=== PATIENT | female | born 1965 | race Caucasian/White ===

== ENCOUNTER 2017-04-08 17:50 | Emergency (ER) | payer SELFPAY ==
[2017-04-08 17:51] VITALS: BMI 33.9
[2017-04-08] MEDS ORDERED: Sodium Chloride 0.9% 1,000 ML IV ONE ×3 (18:18→20:36)
[2017-04-08] MEDS ORDERED: Sodium Chloride 0.9% 1,000 ML ONE ×2 (18:21→19:22)
[2017-04-08 18:29] LABS: BASO # 0.1 K/uL (0.0-0.2); BASO % 0.5 % (0.0-2.0); EOS % 0.1 % (0.0-4.0); HEMATOCRIT 48.7 % (34.0-47.0); LYMPH # 1.3 K/uL (1.0-4.3); LYMPH % 9.7 % (20.0-40.0); MEAN CELL VOLUME 87.7 fL (81.0-99.0); MEAN CORPUSCULAR HEMOGLOBIN 30.5 pg (27.0-31.0); MEAN CORPUSCULAR HGB CONC 34.8 g/dL (33.0-37.0); MEAN PLATELET VOLUME 10.1 fL (7.2-11.7); MONO # 0.3 K/uL (0.0-0.8); MONO % 2.5 % (0.0-10.0); RED CELL DISTRIBUTION WIDTH 12.1 % (11.5-14.5)
[2017-04-08 18:40] LABS: CHLORIDE 97 mmol/L (98-107); PLATELET COUNT 322 K/uL (130-400); WHITE BLOOD COUNT 13.4 K/uL (4.8-10.8)
[2017-04-08 18:41] LABS: POTASSIUM 3.8 mmol/L (3.6-5.2); SODIUM 134 mmol/L (132-148)
[2017-04-08 18:43] LABS: ALB/GLOB RATIO 1.8 (1.0-2.1); ALKALINE PHOSPHATASE 137 U/L (38-126); AST/SGOT 36 U/L (14-36); BILIRUBIN,TOTAL 0.8 mg/dL (0.2-1.3); CARBON DIOXIDE 15 mmol/L (22-30); GFR AFRICAN-AMERICAN > 60; TOTAL PROTEIN 8.6 g/dL (6.3-8.3)
[2017-04-08 18:44] LABS: ALCOHOL SERUM < 10 mg/dl (0-10); ALT/SGPT 35 U/L (9-52); BLOOD UREA NITROGEN 16 mg/dL (7-17); CALCIUM 10.4 mg/dl (8.6-10.4)
[2017-04-08 18:45] LABS: GLUCOSE,RANDOM 457 mg/dL (65-105)
[2017-04-08 19:10] LABS: NEUTROPHIL 77 % (50-75); REACTIVE LYMPHOCYTES 1 % (0-0); TOTAL CELLS COUNTED 100
[2017-04-08] MEDS ORDERED: (Novolin R) Insulin Human Regular 100 units/ml vial IV STA (19:15)
[2017-04-08] MEDS ORDERED: (Novolin R) Insulin Human Regular 100 units/ml vial ONE ×2 (19:22→19:28)
[2017-04-08] MEDS ORDERED: Sodium Chloride 0.9% 100 ML ONE (19:28)
[2017-04-08] MEDS ORDERED: Insulin Human Regular 100 UNIT in Sodium Chloride 0.9% 99 ML IV SCH (19:30)
[2017-04-08 19:46] LABS: ABG ALLEN TEST A; DRAW SITE RRA
--- NOTE | 2017-04-08 19:48 | C.PDOC ---
Time Seen by Provider: 04/08/17 19:05 Chief Complaint (Nursing): Anxiety History Per: Patient History/Exam Limitations: no limitations Onset/Duration Of Symptoms: Other (1 week) Current Symptoms Are (Timing): Still Present Suicide/Self Injury Attempted (Context): None Severity: Mild Pain Scale Rating Of: 3 Recent travel outside of the [place]: No Past Medical History Reviewed: Historical Data, Nursing Documentation, Vital Signs Vital Signs: Last Vital Signs Temp 98 F 04/08/17 19:54 Pulse 119 H 04/08/17 19:54 Resp 17 04/08/17 19:54 BP 137/76 04/08/17 19:54 Pulse Ox 99 04/08/17 21:22 - Medical History PMH: HTN Family History: States: Unknown Family Hx - Social History Hx Alcohol Use: No Hx Substance Use: No - Immunization History Hx Tetanus Toxoid Vaccination: No Hx Influenza Vaccination: No Hx Pneumococcal Vaccination: No Review Of Systems Except As Marked, All Systems Reviewed And Found Negative. ED Course And Treatment - Laboratory Results Result Diagrams: 04/08/17 18:23 04/08/17 18:23 O2 Sat by Pulse Oximetry: 99 (room air) Pulse Ox Interpretation: Normal Progress Note: Plan: ABG, EKG, Labs, IV fluids, Novolin, IV fluids - Scribe Statement The provider has reviewed the documentation as recorded by the Scribe Meghna Birmingham Provider Attestation: All medical record entries made by the Scribe were at my direction and personally dictated by me. I have reviewed the chart and agree that the record accurately reflects my personal performance of the history, physical exam, medical decision making, and the department course for this patient. I have also personally directed, reviewed, and agree with the discharge instructions and disposition.
--- NOTE | 2017-04-08 21:26 | C.PDOC ---
History Of Present Illness <Ezra Norris E - Last Filed: 04/09/17 00:38> <Angel Huerta - Last Filed: 04/09/17 03:13> 51 year old patient, with a past medical history of hypertension, presents to the emergency department complaining of abdominal pain, nausea, vomiting, polyuria, and polydipsia for the past week. Patient was diagnosed with diabetes a few years ago, but states doesn't take her medications because she doesn't want to. Patient denies chest pain, shortness of breath, headache or dizziness. (Ezra Norris) History Per: Patient History/Exam Limitations: no limitations Onset/Duration Of Symptoms: Other (1 week) Context: Other Severity: Mild Pain Scale Rating Of: 3 Location Of Pain/Discomfort: Diffuse Radiation Of Pain To:: None Quality Of Discomfort: "Pain" Associated Symptoms: Nausea, Vomiting, Urinary Symptoms Exacerbating Factors: None Alleviating Factors: None Last Bowel Movement: Today Recent travel outside of the [place]: No <Ezra Norris - Last Filed: 04/09/17 00:38> <Angel Huerta - Last Filed: 04/09/17 03:13> Time Seen by Provider: 04/08/17 19:05 Chief Complaint (Nursing): Anxiety Past Medical History Reviewed: Historical Data, Nursing Documentation, Vital Signs - Medical History PMH: HTN Family History: States: Unknown Family Hx - Social History Hx Alcohol Use: No Hx Substance Use: No - Immunization History Hx Tetanus Toxoid Vaccination: No Hx Influenza Vaccination: No Hx Pneumococcal Vaccination: No <Ezra Norris - Last Filed: 04/09/17 00:38> Review Of Systems Except As Marked, All Systems Reviewed And Found Negative. Cardiovascular: Negative for: Chest Pain Respiratory: Negative for: Shortness of Breath Gastrointestinal: Positive for: Nausea, Vomiting, Abdominal Pain Genitourinary: Positive for: Other (polyuria, polydipsia) Neurological: Negative for: Headache, Dizziness <Ezra Norris - Last Filed: 04/09/17 00:38> Physical Exam - Physical Exam Appears: Non-toxic, No Acute Distress Skin: Warm, Dry Head: Atraumatic, Normacephalic Eye(s): bilateral: Normal Inspection Oral Mucosa: Dry Neck: Normal ROM, Supple Chest: Symmetrical Cardiovascular: Rhythm Regular (tachycardic) Respiratory: Normal Breath Sounds, No Rales, No Rhonchi, No Wheezing Gastrointestinal/Abdominal: Soft, No Tenderness, No Guarding, No Rebound Back: Normal Inspection, No CVA Tenderness Extremity: Normal ROM Neurological/Psych: Oriented x3, Normal Speech, Normal Cognition Gait: Steady <Ezra Norris - Last Filed: 04/09/17 00:38> ED Course And Treatment - Laboratory Results Result Diagrams: 04/08/17 18:23 04/08/17 18:23 ECG: Interpreted By Me ECG Rhythm: Sinus Tachycardia ECG Interpretation: Abnormal Rate From EC O2 Sat by Pulse Oximetry: 99 (room air) Pulse Ox Interpretation: Normal - Radiology CXR: Interpreted by Me CXR Interpretation: Yes: No Acute Disease Progress Note: Plan: ABG, EKG, Labs, IV fluids, Novolin. even after agressive hydration and BS control, pt persistently tachycardic with palps. Ativan IV and Reglan for nausea given. 0000: D-dimer ordered and elevated, CTA ordered and pending. <Ezra Norris - Last Filed: 04/09/17 00:38> - Laboratory Results Result Diagrams: 04/08/17 18:23 04/08/17 18:23 <Angel Huerta - Last Filed: 04/09/17 03:13> Medical Decision Making <Ezra Norris - Last Filed: 04/09/17 00:38> <Angel Huerta - Last Filed: 04/09/17 03:13> Medical Decision Making: uncontrolled DM with persistent palpitations and n/v elev d-dimer, ? PE (Ezra Norris) Disposition - Disposition Disposition Time: 01:00 <Ezra Norris - Last Filed: 04/09/17 00:38> - Disposition Disposition Time: 03:10 - POA Present On Arrival: None <Angel Huerta - Last Filed: 04/09/17 03:13> - Disposition Referrals: [facility] [Outside] Disposition: HOME/ ROUTINE Condition: FAIR Prescriptions: Azithromycin [Zithromax] 500 mg PO DAILY #7 tablet metFORMIN [glucOPHAGE] 500 mg PO STAT #30 tab Forms: Gen Discharge Inst Kazakh Print Language: ITALIAN - Clinical Impression Clinical Impression: Hyperglycemia, Anxiety, Palpitations, Upper respiratory infection - Scribe Statement The provider has reviewed the documentation as recorded by the Scribe <Ezra Norris - Last Filed: 04/09/17 00:38> <Angel Huerta - Last Filed: 04/09/17 03:13> - Scribe Statement Meghna Birmingham (Ezra Norris) Provider Attestation: All medical record entries made by the Scribe were at my direction and personally dictated by me. I have reviewed the chart and agree that the record accurately reflects my personal performance of the history, physical exam, medical decision making, and the department course for this patient. I have also personally directed, reviewed, and agree with the discharge instructions and disposition. (Ezra Norris)
[2017-04-09 00:06] LABS: RBC URINE 1 /hpf (0-3); URINE BACTERIA OCC (<OCC); URINE BILIRUBIN NEGATIVE (NEGATIVE); URINE BLOOD NEGATIVE (NEGATIVE); URINE COLOR Yellow (YELLOW); URINE GLUCOSE (UA) 3+ mg/dL (Normal); URINE KETONE 1+ mg/dL (NEGATIVE); URINE LEUKOCYTE ESTERASE NEG Leu/uL (Negative); URINE PROTEIN NEGATIVE (NEGATIVE); URINE UROBILINOGEN NORMAL mg/dL (0.2-1.0); WBC URINE < 1 /hpf (0-5)
[2017-04-09] MEDS ORDERED: Iodixanol 320 MG/ML 100 ML BOTTLE IV ONE (01:17)
[2017-04-09] MEDS ORDERED: Azithromycin 500mg/250ML NS 500 MG/250 ML BAG IV STA (03:14)
[2017-04-09] MEDS ORDERED: Azithromycin 500mg/250ML NS 500 MG/250 ML BAG IVPB ONE (03:22)
[2017-04-09 06:01] VITALS: BP 110/59; PULSE 99; RESP 15; TEMP 98.2; O2SAT 100
--- NOTE | 2017-04-09 13:16 | CT ---
PROCEDURE: CT Chest with contrast (Pulmonary Angiogram) HISTORY: Elevated D-dimer COMPARISON: None available. TECHNIQUE: Axial computed tomography images were obtained of the chest in the pulmonary arterial phase of enhancement. Coronal and sagittal reformatted images were created and reviewed. Intravenous contrast dose: Radiation dose: Total exam DLP = mGy-cm. This CT exam was performed using one or more of the following dose reduction techniques: Automated exposure control, adjustment of the mA and/or kV according to patient size, and/or use of iterative reconstruction technique. FINDINGS: PULMONARY ARTERIES: Unremarkable. No pulmonary embolism. AORTA: No acute findings. No thoracic aortic aneurysm. LUNGS: Unremarkable. No nodule, mass or pulmonary consolidation. PLEURAL SPACES: Unremarkable. No effusion or pneuomothorax. HEART: Unremarkable. No cardiomegaly. No significant pericardial effusion. LYMPH NODES: No lymphadenopathy. BONES, CHEST WALL: Unremarkable. No fracture or destructive lesion OTHER FINDINGS: Fatty infiltration of the liver.. IMPRESSION: Unremarkable CT pulmonary angiogram. No pulmonary embolus.
--- NOTE | 2017-04-09 13:29 | RAD ---
HISTORY: adm COMPARISON: No prior. TECHNIQUE: Chest, one view. FINDINGS: Examination limited by habitus. LUNGS: No focal consolidation. Please note that chest x-ray has limited sensitivity for the detection of pulmonary masses. PLEURA: No significant pleural effusion identified. No definite pneumothorax . CARDIOVASCULAR: Heart size appears within normal limits. OSSEOUS STRUCTURES: Degenerative changes. VISUALIZED UPPER ABDOMEN: Unremarkable. OTHER FINDINGS: None. IMPRESSION: No focal consolidation, significant pleural effusion, or definite pneumothorax identified.
--- NOTE | 2017-04-09 19:39 | CARD ---
APPROVED REPORT EKG Measurement Heart [id number] ND [id number] <Conclusion> Sinus tachycardia Possible Left atrial enlargement Borderline ECG
== END 2017-04-09 08:49 | disposition home or self-care (01) ==
LOC: C.ER 17:50
DX: E11.65 Type 2 diabetes mellitus with hyperglycemia (principal); J06.9 Acute upper respiratory infection, unspecified; R00.2 Palpitations; F41.9 Anxiety disorder, unspecified
CPT/HCPCS: 71010; 71275; 80053; 81001; 82009; 82803; 82948; 84484; 85025; 85378; 93005; 96361; 96365; 96375; 96376; 99285; G0480; J0456; J2060; J2405; J2765; J7040; Q9967